=== PATIENT | female | born 1975 | race African-American/Black ===

== ENCOUNTER 2017-10-18 22:26 | Emergency (ER) | payer OTHER ==
[2017-10-18 22:35] VITALS: TEMP 98.6
[2017-10-18] MEDS ORDERED: ONDANSETRON 4 MG/2 ML VIAL IVP ONE (22:48)
[2017-10-18] MEDS ORDERED: NS 1,000 ML IV ONE (22:48)
--- NOTE | 2017-10-18 22:48 | EDPHY ---
H & P Stated Complaint: lower abd pain since friday Time Seen by Provider: 10/18/17 22:47 HPI/ROS: HPI: This is a 42-year-old female who presents with Chief Complaint: lower abd pain since friday Location: Suprapubic/groin Quality: Pain Duration: 3 days Signs and Symptoms: no fever, + nausea, no vomiting, no hematemesis, no blood in stool, no abdominal bloating, no diarrhea, no back pain, no urinary symptoms , no vaginal bleeding/discharge, no indigestion, no chest pain, no shortness of breath Timing: Acute, constant Severity: Moderate Context: Patient is a G3 with 1 living child, status post D&C and LEEP procedures greater than 10 years ago presents with 3 day history of suprapubic and groin described as a deep, constant, moderate, nonradiating pain that is not improved with Motrin, Tylenol, or sexual intercourse. She has not had her menstrual cycle since August. Went to her OBGYN yesterday; negative test; due to her amenorrhea had pelvic exam which included cervical manipulation in order to encourage menstruation for the patient. She was not given any medication. She thinks that she may have a stone or blood clot. Has a history of fibroids but greater than 10 years ago. OBGYN did not perform pelvic ultrasound yesterday. She feels nauseous but still able to eat 3 meals a day. Denies any urinary symptoms/fever/back pain/vaginal discharge/vaginal bleeding. Modifying Factors: See above Comment: ROS: see HPI Constitutional: No fever, no chills, no weight loss Eyes: No blurred vision Respiratory: No shortness of breath, no cough Cardiovascular: No chest pain, no palpitations Gastrointestinal: + nausea, no vomiting, no diarrhea, no hematemesis, no blood in stool Genitourinary: No dysuria, no blood in urine Extremities: No myalgias, no edema Neurologic: No weakness, no numbness Skin: No rashes, no petechiae Hematologic: No bruising, no bleeding MEDICAL/SURGICAL/SOCIAL HISTORY: Medical history: epilepsy on Keppra, hypertension. Surgical history: Denies Social history: Employed CONSTITUTIONAL: Nontoxic-appearing obese black female, awake and alert, no obvious distress HEENT: Atraumatic and normocephalic, PERRL, EOMI. Tympanic membranes clear. Oropharynx clear, no exudate and moist pink mucosa. Airway patent. No lymphadenopathy. No meningismus. Cardiovascular: Normal S1/S2, regular rate, regular rhythm, without murmur rub or gallop. PULMONARY/CHEST: Symmetrical and nontender. Clear to auscultation bilaterally. Good air movement. No accessory muscle usage. ABDOMEN: Soft, O [place] round, nondistended, moderate suprapubic tenderness to deep palpation, no rebound, no guarding, no peritoneal signs, no masses or organomegaly. No CVAT. PELVIC: normal external genitalia, normal cervix, cervical os was closed, no cervical motion tenderness, no adnexal mass, no discharge, no bleeding. 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 EXTREMITIES: 2/2 pulses, strength 5/5, no deformities, no clubbing, no cyanosis or edema. NEUROLOGICAL: no focal neuro deficits. GCS 15. SKIN: Warm and dry, no erythema. no rash. Good capillary refill. Source: Patient Exam Limitations: No limitations - Personal History LMP (Females 10-55): Now Current Tetanus/Diphtheria Vaccine: Yes - Medical/Surgical History Hx Asthma: No Hx Chronic Respiratory Disease: No Hx Diabetes: No Hx Cardiac Disease: No Hx Renal Disease: No Hx Cirrhosis: No Hx Alcoholism: No Hx HIV/AIDS: No Hx Splenectomy or Spleen Trauma: No Other PMH: epilepsy, HTN, - Social History Smoking Status: Never smoked Constitutional: Initial Vital Signs Temperature (C) 37.0 C 10/18/17 22:31 Heart Rate 88 10/18/17 22:31 Respiratory Rate 18 10/18/17 22:31 Blood Pressure 142/89 H 10/18/17 22:31 O2 Sat (%) 94 10/18/17 22:31 O2 Delivery Mode Room Air Allergies/Adverse Reactions: No Known Allergies Allergy (Unverified 10/18/17 22:34) Home Medications: Medication Instructions Recorded Brando 10/18/17 Medical Decision Making - Diagnostics Imaging Results: Imaging Impressions Abdomen/Pelvis CT 10/18/17 22:53 Impression: There is no evidence of nephrolithiasis or obstructive uropathy. Attention: This CT examination is specifically designed to evaluate patients who are clinically suspected of having acute obstructive uropathy. This examination does not use radiographic contrast, and as such, provides only a limited evaluation of the abdomen, pelvis, and retroperitoneum. If there is further clinical suspicion for pathological conditions other than obstructive uropathy, a complete CT evaluation of the abdomen and pelvis utilizing intravenous, oral, and rectal contrast should be considered. Findings were discussed with Radha Cebalols PA-C at 0:16, on 10/19/2017. Pelvic/Renal Ultrasound 10/18/17 22:53 Impression: 1. There is an anterior right mid-uterine body 3.0 cm fibroid. 2. Normal appearance of the ovaries, with no adnexal mass or torsion. Findings were discussed with Radha Ceballos PA-C at 23:42, on 10/18/2017. . ED Course/Re-evaluation: Labs, urinalysis, IV fluids, IV medications, CT abdomen and pelvis scan, pelvic ultrasound ordered 2343: Called by radiologist Dr. Omalley who advises that pelvic ultrasound shows 3 cm fibroid, no signs of ovarian torsion, ovarian cyst hemorrhage, endometrium is within normal limits Started menstruation while in the emergency room Urinalysis shows hematuria consistent with menses 0010: labs reviewed; mild normocytic anemia noted otherwise within normal limits Called by radiologist who advised CT abdomen and pelvis scan shows no stone/ colitis/obstruction/appendicitis/diverticulitis. Repeat abdominal exam is soft and nontender. Doubt surgical abdomen. This patient was seen under the supervision of my secondary supervising physician. I evaluated care for this patient independently. Discussed this patient with Dr. Montes who did not see the patient. Differential Diagnosis: Abdominal pain in a female including but not limited to ovarian cyst, pelvic inflammatory disease, ovarian torsion, urinary tract infection, and appendicitis. - Data Points Laboratory Results: Laboratory Results 10/18/17 23:10 10/18/17 23:10 10/18/17 10/18/17 10/18/17 23:10 23:10 23:10 WBC 8.08 10^3/uL 10^3/uL (3.80-9.50) RBC 3.91 10^6/uL L 10^6/uL (4.18-5.33) Hgb 10.5 g/dL L g/dL (12.6-16.3) Hct 32.6 % L % (38.0-47.0) MCV 83.4 fL fL (81.5-99.8) MCH 26.9 pg L pg (27.9-34.1) MCHC 32.2 g/dL L g/dL (32.4-36.7) RDW 15.4 % H % (11.5-15.2) Plt Count 312 10^3/uL 10^3/uL (150-400) MPV 10.4 fL fL (8.7-11.7) Neut % (Auto) 54.8 % % (39.3-74.2) Lymph % (Auto) 35.3 % % (15.0-45.0) [place] % (Auto) 8.3 % % (4.5-13.0) Eos % (Auto) 0.5 % L % (0.6-7.6) Baso % (Auto) 0.6 % % (0.3-1.7) Nucleat RBC Rel Count 0.0 % % (0.0-0.2) Absolute Neuts (auto) 4.43 10^3/uL 10^3/uL (1.70-6.50) Absolute Lymphs (auto) 2.85 10^3/uL 10^3/uL (1.00-3.00) Absolute Monos (auto) 0.67 10^3/uL 10^3/uL (0.30-0.80) Absolute Eos (auto) 0.04 10^3/uL 10^3/uL (0.03-0.40) Absolute Basos (auto) 0.05 10^3/uL 10^3/uL (0.02-0.10) Absolute Nucleated RBC 0.00 10^3/uL 10^3/uL (0-0.01) Immature Gran % 0.5 % % (0.0-1.1) Immature Gran # 0.04 10^3/uL 10^3/uL (0.00-0.10) Sodium 142 mEq/L mEq/L (135-145) Potassium 3.7 mEq/L mEq/L (3.5-5.2) Chloride 108 mEq/L mEq/L (97-110) Carbon Dioxide 20 mEq/l L mEq/l (22-31) Anion Gap 14 mEq/L mEq/L (8-16) BUN 12 mg/dL mg/dL (7-23) Creatinine 0.8 mg/dL mg/dL (0.6-1.0) Estimated GFR > 60 Glucose 95 mg/dL mg/dL (70-100) Calcium 9.4 mg/dL mg/dL (8.5-10.4) Total Bilirubin 0.2 mg/dL mg/dL (0.1-1.4) Conjugated Bilirubin 0.2 mg/dL mg/dL (0.0-0.5) Unconjugated Bilirubin 0.0 mg/dL mg/dL (0.0-1.1) AST 17 IU/L IU/L (14-46) ALT 30 IU/L IU/L (9-52) Alkaline Phosphatase 98 IU/L IU/L (38-126) Total Protein 6.5 g/dL g/dL (6.3-8.2) Albumin 3.6 g/dL g/dL (3.5-5.0) Lipase 63 IU/L IU/L (23-300) Beta HCG, Qual NEGATIVE Urine Color Urine Appearance Urine pH Ur Specific [place] Urine Protein Urine Ketones Urine Blood Urine Nitrate Urine Bilirubin Urine Urobilinogen Ur Leukocyte Esterase Urine RBC Urine WBC Ur Epithelial Cells Urine Mucus Urine Glucose 10/18/17 22:39 WBC RBC Hgb Hct MCV MCH MCHC RDW Plt Count MPV Neut % (Auto) Lymph % (Auto) [place] % (Auto) Eos % (Auto) Baso % (Auto) Nucleat RBC Rel Count Absolute Neuts (auto) Absolute Lymphs (auto) Absolute Monos (auto) Absolute Eos (auto) Absolute Basos (auto) Absolute Nucleated RBC Immature Gran % Immature Gran # Sodium Potassium Chloride Carbon Dioxide Anion Gap BUN Creatinine Estimated GFR Glucose Calcium Total Bilirubin Conjugated Bilirubin Unconjugated Bilirubin AST ALT Alkaline Phosphatase Total Protein Albumin Lipase Beta HCG, Qual Urine Color YELLOW Urine Appearance HAZY Urine pH 5.0 (5.0-7.5) Ur Specific [place] 1.029 (1.002-1.030) Urine Protein 1+ H (NEGATIVE) Urine Ketones NEGATIVE (NEGATIVE) Urine Blood 3+ H (NEGATIVE) Urine Nitrate NEGATIVE (NEGATIVE) Urine Bilirubin NEGATIVE (NEGATIVE) Urine Urobilinogen NEGATIVE EU EU (0.2-1.0) Ur Leukocyte Esterase TRACE H (NEGATIVE) Urine RBC 50-182 /hpf H /hpf (0-3) Urine WBC 10-15 /hpf H /hpf (0-3) Ur Epithelial Cells TRACE /lpf /lpf (NONE-1+) Urine Mucus 1+ /lpf /lpf (NONE-1+) Urine Glucose NEGATIVE (NEGATIVE) Medications Given: Discontinued Medications Sodium Chloride (Ns) 1,000 mls @ 0 mls/hr IV EDNOW ONE; Wide Open PRN Reason: Protocol Stop: 10/18/17 22:49 Last Admin: 10/18/17 23:19 Dose: 1,000 mls Ondansetron HCl (Zofran) 4 mg IVP EDNOW ONE Stop: 10/18/17 22:49 Last Admin: 10/18/17 23:18 Dose: Not Given Departure - Departure Disposition: Home, Routine, Self-Care Clinical Impression: Uterine fibroid Qualifiers: Uterine leiomyoma location: unspecified location Qualified Code(s): D25.9 - Leiomyoma of uterus, unspecified Condition: Good Instructions: Normal Exam (ED) Additional Instructions: Today your labs and imaging showed a fibroid in your uterus. Please follow up with OBGYN as directed. Referrals: [facility] [Other] - As per Instructions
[2017-10-18 23:29] LABS: PLATELET COUNT 312 10^3/uL (150-400)
[2017-10-19 00:55] VITALS: BP 117/58; PULSE 71; RESP 16; O2SAT 95
== END 2017-10-19 01:04 | disposition home or self-care (01) ==
DX: D25.9 Leiomyoma of uterus, unspecified (principal); I10 Essential (primary) hypertension; E86.9 Volume depletion, unspecified
CPT/HCPCS: J2405

== ENCOUNTER 2017-10-20 13:53 | Emergency (ER) | payer OTHER ==
[2017-10-20 15:42] LABS: PLATELET COUNT 357 10^3/uL (150-400)
[2017-10-20] MEDS ORDERED: HYDROmorphONE/DILAUDID 1 MG/ML INJ IVP ONE (15:47)
[2017-10-20] MEDS ORDERED: IOPAMIDOL (ISOVUE-300) 100 ML BTL ONE (16:42)
--- NOTE | 2017-10-20 18:19 | EDPHY ---
H & P Stated Complaint: here Sat for abd pain. Sent by [facility] AS[facility] for CT w/contrast to r/o appy Time Seen by Provider: 10/20/17 15:25 HPI/ROS: CHIEF COMPLAINT: Abdominal pain HISTORY OF PRESENT ILLNESS: This is a 42-year-old female was referred to the emergency department by her OBGYN after evaluating her in the office today. This patient was seen on with complaint of abdominal pain. At that time she underwent abdominal/pelvic CT without contrast and pelvic ultrasound. A 3 cm fibroid was discovered, no other abnormalities that might explain her pain. She was seen by Dr. Jefferson today complained of persistent and worsening pain, now located in the right lower quadrant. It is constant with waxing and waning. She had a bowel movement yesterday none today. She normally has a bowel movement daily. She reports increased belching but no increase in flatulence. She has not had vomiting or diarrhea. She denies urinary symptoms. She is menstruating. REVIEW OF SYSTEMS: A ten point review of systems was performed and is negative with the exception of the items mentioned in the HPI. Past medical history: Hypertension Social history: She just moved to [place]. She does not use tobacco products. 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 General Appearance: Alert. Vital signs reviewed. Blood pressure 169/93. Eyes: Pupils equal and round, no conjunctival injection, no discharge. Anicteric. ENT, Mouth: Mucous membranes are moist, no oropharyngeal erythema or edema. Neck: No lymphadenopathy, supple. Respiratory: Lungs are clear to auscultation; no wheezes, rales, or rhonchi. Cardiovascular: Regular rate and rhythm; no murmur, rub, or gallop. Gastrointestinal: Abdomen is obese, soft and tender in the right lower quadrant without guarding, no masses or organomegaly appreciated, bowel sounds normal. Skin: Warm and dry, no rashes on exposed skin, normal color. Back: Nontender to palpation over the thoracolumbar spine. No CVAT. Extremities: No lower extremity edema, no calf tenderness or swelling. Neurological: Alert and oriented. Moving all four extremities easily and equally. Psychiatric: Normal affect. - Personal History LMP (Females 10-55): Now Current Tetanus Diphtheria and Acellular Pertussis (TDAP): Yes - Medical/Surgical History Hx Asthma: No Hx Chronic Respiratory Disease: No Hx Diabetes: No Hx Cardiac Disease: No Hx Renal Disease: No Hx Cirrhosis: No Hx Alcoholism: No Hx HIV/AIDS: No Hx Splenectomy or Spleen Trauma: No Other PMH: epilepsy, HTN, - Social History Smoking Status: Never smoked Constitutional: Initial Vital Signs Temperature (C) 36.8 C 10/20/17 14:03 Heart Rate 71 10/20/17 14:03 Respiratory Rate 18 10/20/17 14:03 Blood Pressure 169/93 H 10/20/17 14:03 O2 Sat (%) 98 10/20/17 14:03 O2 Delivery Mode Room Air O2 (L/minute) 2 Allergies/Adverse Reactions: No Known Allergies Allergy (Verified 10/20/17 14:02) Home Medications: Medication Instructions Recorded Keppra 10/18/17 Hydrocodone/APAP 5/325 [[place] 1 - 2 tab PO Q4 PRN #10 tab 10/20/17 5/325 (RX)] Medical Decision Making ED Course/Re-evaluation: CT scan with IV contrast was obtained to assess for appendicitis. This study was reported to me by the radiologist on duty and is negative for appendicitis. No obvious explanation for the patient's pain was discovered in this CT scan. She does have stool scattered throughout a nondilated colon. We discussed the possibility of constipation contributing to her abdominal pain. We discussed symptomatic treatment of constipation. At this point I do not suspect cholecystitis, appendicitis, ovarian torsion or ovarian cyst, intra- abdominal infection, or urinary etiology. The cause of her abdominal pain remains somewhat unclear. We reviewed the danger signs that should prompt her to be immediately re-evaluated. She is referred to a primary care physician and will continue with her OBGYN. She is advised to continue with an acid blocking medication and to take it regularly; she has reported increased belching. She does not have a surgical abdomen and I do not think that additional emergency department evaluation tonight will elucidate the etiology of her pain. Differential Diagnosis: Abdominal pain including but not limited to appendicitis, cholecystitis, gastritis/duodenitis, ovarian cyst, uterine mass, ovarian torsion, and urinary tract infection. - Data Points Laboratory Results: Laboratory Results 10/20/17 15:36 10/20/17 15:36 Medications Given: Discontinued Medications Hydromorphone HCl (Dilaudid) 0.5 mg IVP EDNOW ONE Stop: 10/20/17 15:48 Last Admin: 10/20/17 16:09 Dose: 0.5 mg Departure - Departure Disposition: Home, Routine, Self-Care Clinical Impression: Abdominal pain Qualifiers: Abdominal location: right lower quadrant Qualified Code(s): R10.31 - Right lower quadrant pain Condition: Good Instructions: Abdominal Pain (ED) Additional Instructions: As we discussed, try Miralax for bowel regularity. He might also try some Gas- X for the belching. Continue the Pepcid daily, according to the instructions on the packaging. Adult Pain & Fever Control: We recommend Acetaminophen (Tylenol) and Ibuprofen (Motrin,Advil) for pain and fever control. When fever is high or pain severe, both drugs can be used at the same time, but at different intervals. Please note the time differences. Your dose is: Acetaminophen 650mg every 4 to 6 hours Ibuprofen 400mg every 6 hours with food OR Note: do not take Acetaminophen with Hydrocodone (Vicodin, Lortab) or Oycodone (Percocet). These medications also contain Acetaminophen. No more than 3000mg of Acetaminophen should be taken in 24 hours (for an adult). I am prescribing a small quantity of Vicodin to use for pain. This is a narcotic /opiate pain medication and does contain Tylenol. Please be aware of the above restrictions concerning your overall daily Tylenol dose. I am referring you to a primary care physician. If you develop new or concerning symptoms such as fever or vomiting or have persistent worsening abdominal pain you should be re-evaluated. Referrals: Alexandra Molina MD [Primary Care Provider] - As per Instructions Melody Solo DO [Doctor of Osteopathy] - As per Instructions Prescriptions: Hydrocodone/APAP 5/325 [[place] 5/325 (RX)] 1 - 2 tab PO Q4 PRN #10 tab PRN Reason: pain
[2017-10-20 19:14] VITALS: BP 118/65; PULSE 74; RESP 18; TEMP 97.9; O2SAT 96
== END 2017-10-20 19:16 | disposition home or self-care (01) ==
DX: R10.31 Right lower quadrant pain (principal); I10 Essential (primary) hypertension
CPT/HCPCS: 96374; J1170; Q9967